=== PATIENT | female | born 1965 | race Caucasian/White ===

== ENCOUNTER 2020-01-27 11:47 | Emergency (ER) | payer BC ==
[~2020-01-27] VITALS: Ht 152.4 cm; Wt 113.6 kg
[~2020-01-27 11:47] MED LIST: ATIVAN0.5 MG PO; AUGMENTIN875TAB OR; BACTRIM DS1 TAB PO; CIPRO500 MG PO; GLIPIZIDE ER5 M1 PO; IBUPROFEN600 MG PO; LIPITOR20 M1 PO; LORTAB 7.5 PO; LORTAB 7.57.5 MG OR; LORTAB5 PO; NICOTINE PATCH; SERTRALINE100 MG PO; TRAMADOL HCL50 MG PO; ZESTRIL/PRINIV2.5 MG PO; ZOFRAN ODT4 MG OR
[2020-01-27 12:40] LABS: HEMATOCRIT 40.7 % (37.0-47.0); HEMOGLOBIN 12.8 g/dl (12.0-16.0); IMMATURE GRANULOCYTES 0.4 % (0.0-5.0); MEAN CELL VOLUME 91.7 fL CALC (80.0-100.0); MEAN CORPUSCULAR HGB 28.8 pG CALC (26.0-32.0); MEAN CORPUSCULAR HGB CONC 31.4 g/dL CAL (32.0-36.0); NEUT# 7.04 thou/uL (2.00-7.15); RED BLOOD COUNT 4.44 mill/uL (4.20-5.60); RED CELL DISTRI WIDTH 13.2 % (11.5-15.5)
[2020-01-27 12:47] LABS: GFR > 60 ML/MIN (>=60 (CALC)); GFR FOR AFR.AMER. > 60 ML/MIN (>=60 (CALC))
[2020-01-27 12:49] LABS: ALBUMIN 3.3 g/dL (3.2-5.0); BUN 15 mg/dL (7-17); BUN/CREATININE RATIO 32 (12-20 (CALC)); CARBON DIOXIDE 31 mmol/l (22-30); CREATININE 0.5 mg/dL (0.5-1.0); GFR > 60 ML/MIN (>=60 (CALC)); GFR FOR AFR.AMER. > 60 ML/MIN (>=60 (CALC)); POTASSIUM 4.2 mmol/l (3.5-5.1); SGOT/AST 37 u/l (14-36); SODIUM 133 mmol/l (137-146); TOTAL PROTEIN 6.2 g/dL (6.3-8.2)
[2020-01-27 12:50] LABS: ALKALINE PHOSPHATASE 200 u/l (38-126); ANION GAP 13 (6-22 (CALC)); CHLORIDE 93 mmol/l (95-108)
[2020-01-27 13:18] LABS: C-REACTIVE PROTEIN 20.1 mg/dL (0-0.9)
[2020-01-27] MEDS ORDERED: PROAIR HFA IN (13:50)
[2020-01-27] MEDS ORDERED: TRULICITY1.5 MG/0.5 SC (13:52)
[2020-01-27 16:14] LABS: URINE BILIRUBIN - DIPSTICK NEGATIVE (NEGATIVE); URINE BLOOD DIPSTICK NEGATIVE (NEGATIVE); URINE COLOR YELLOW; URINE GLUCOSE - DIPSTICK NEGATIVE (NEGATIVE); URINE KETONE NEGATIVE (NEGATIVE); URINE LEUK ESTERASE NEGATIVE (NEGATIVE); URINE NITRITE - DIPSTICK NEGATIVE (Negative); URINE PROTEIN - DIPSTICK NEGATIVE (NEG-TRACE); URINE UROBILINOGEN - DIPSTICK 0.2 E.U./dL (0.2)
[2020-01-27 16:35] VITALS: BP 100/55
== END 2020-01-27 16:35 | disposition short-term general hospital (02) | DRG 194 ==
LOC: ED 11:47
PROVIDERS: Family Medicine
DX: J18.9 Pneumonia, unspecified organism (principal); R04.2 Hemoptysis; J44.0 Chronic obstructive pulmonary disease with (acute) lower respiratory infection; C78.7 Secondary malignant neoplasm of liver and intrahepatic bile duct; R59.0 Localized enlarged lymph nodes; C80.1 Malignant (primary) neoplasm, unspecified; E11.9 Type 2 diabetes mellitus without complications; I10 Essential (primary) hypertension; F17.200 Nicotine dependence, unspecified, uncomplicated; Z79.84 Long term (current) use of oral hypoglycemic drugs; Z20.828 Contact with and (suspected) exposure to other viral communicable diseases
CPT/HCPCS: J0692; Q9967

== ENCOUNTER 2020-05-15 12:17 | Emergency (ER) | payer BC ==
[~2020-05-15] VITALS: Ht 167.6 cm; Wt 91.0 kg
[~2020-05-15 12:17] MED LIST changes: +PROAIR HFA IN; +TRULICITY1.5 MG/0.5 SC
[2020-05-15 15:01] LABS: HEMATOCRIT 34.8 % (37.0-47.0); HEMOGLOBIN 10.9 g/dl (12.0-16.0); IMMATURE GRANULOCYTES 1.9 % (0.0-5.0); MEAN CELL VOLUME 89.5 fL CALC (80.0-100.0); MEAN CORPUSCULAR HGB CONC 31.3 g/dL CAL (32.0-36.0); NEUT# 9.06 thou/uL (2.00-7.15); RED BLOOD COUNT 3.89 mill/uL (4.20-5.60); RED CELL DISTRI WIDTH 18.2 % (11.5-15.5)
[2020-05-15 15:01] LABS: GFR > 60 ML/MIN (>=60 (CALC)); GFR FOR AFR.AMER. > 60 ML/MIN (>=60 (CALC))
[2020-05-15 15:20] LABS: ALBUMIN 3.3 g/dL (3.2-5.0); BUN 21 mg/dL (7-17); BUN/CREATININE RATIO 47 (12-20 (CALC)); CARBON DIOXIDE 37 mmol/l (22-30); CREATININE 0.5 mg/dL (0.5-1.0); GFR > 60 ML/MIN (>=60 (CALC)); GFR FOR AFR.AMER. > 60 ML/MIN (>=60 (CALC))
[2020-05-15 15:32] LABS: ALKALINE PHOSPHATASE 1026 u/l (38-126); ANION GAP 11 (6-22 (CALC)); BILIRUBIN, TOTAL 2.5 mg/dL (0.0-1.4); C-REACTIVE PROTEIN 15.9 mg/dL (0-0.9); CHLORIDE 81 mmol/l (95-108); SGOT/AST 161 u/l (14-36); SODIUM 125 mmol/l (137-146)
[2020-05-15 18:00] VITALS: BP 126/72
== END 2020-05-15 17:40 | disposition short-term general hospital (02) | DRG 194 ==
LOC: ED 12:17
PROVIDERS: Family Medicine
PROC: 06HY33Z Insertion of Infusion Device into Lower Vein, Percutaneous Approach (ICD-10-PCS; principal; 2020-05-15)
DX: J18.9 Pneumonia, unspecified organism (principal); J91.8 Pleural effusion in other conditions classified elsewhere; J44.0 Chronic obstructive pulmonary disease with (acute) lower respiratory infection; C34.90 Malignant neoplasm of unspecified part of unspecified bronchus or lung; C78.7 Secondary malignant neoplasm of liver and intrahepatic bile duct; I10 Essential (primary) hypertension; E11.9 Type 2 diabetes mellitus without complications; F17.200 Nicotine dependence, unspecified, uncomplicated; Z20.828 Contact with and (suspected) exposure to other viral communicable diseases
CPT/HCPCS: J0692